=== PATIENT | female | born 1945 | race Caucasian/White ===

== ENCOUNTER 2020-05-23 19:02 | Emergency (ER) | payer MEDICARE ==
[~2020-05-23] VITALS: Ht 152.4 cm; Wt 59.0 kg
[2020-05-23 19:02] VITALS: BP 210/74
[2020-05-23] MEDS ORDERED: cefTRIAXone 1,000 MG in DEXT 5% MINI-BAG PLUS 50 ML IV ONE (19:20)
[2020-05-23] MEDS ORDERED: NACL 0.9% 1,000 ML IV SCH (19:20)
[2020-05-23] MEDS ORDERED: ATEN25TA7 PO (19:22)
[2020-05-23] MEDS ORDERED: METF500T2 PO (19:22)
[2020-05-23] MEDS ORDERED: GLIP5TER PO (19:22)
[2020-05-23] MEDS ORDERED: LISI2.5T12 PO (19:22)
[2020-05-23] MEDS ORDERED: ATOR10TA PO (19:22)
--- NOTE | 2020-05-23 19:25 | NUR ---
75 Y/O FEMALE BIBA FROM HOME C/O OF BEDSORES FOR UNKNOWN TIME. A&OX1 BASELINE. MEDHX: HTN, HLD, DM, DEMEMTIA NKA
[2020-05-23] MEDS ORDERED: cefTRIAXone 1,000 MG VIAL ONE (19:29)
--- NOTE | 2020-05-23 19:47 | NUR ---
XRAY AT BEDSIDE
[2020-05-23 20:02] LABS: BASOPHILS # (AUTO) 0.3 K/uL (0.00-0.22); BASOPHILS % (AUTO) 3.1 % (0.0-2.0); EOSINOPHILS # (AUTO) 0.1 K/uL (0-0.4); EOSINOPHILS % (AUTO) 0.8 % (0.0-4.0); HEMATOCRIT 34.6 % (36-48); HEMOGLOBIN 11.5 g/dL (12.0-16.0); LYMPHOCYTES # (AUTO) 1.2 K/uL (2.5-16.5); LYMPHOCYTES % (AUTO) 14.5 % (20.5-51.1); MEAN CORPUSCULAR HEMOGLOBIN 27 pg (27-31); MEAN CORPUSCULAR HGB CONC 33 g/dL (33-37); MEAN CORPUSCULAR VOLUME 80.2 fL (80-94); MONOCYTES # (AUTO) 0.4 K/uL (0.8-1.0); MONOCYTES % (AUTO) 4.3 % (1.7-9.3); NEUTROPHILS # (AUTO) 6.5 K/uL (1.8-7.7); NEUTROPHILS % (AUTO) 77.3 % (42.2-75.2); PLATELET COUNT (AUTO) 283 K/uL (140-450); RED BLOOD CELL COUNT(AUTO) 4.32 MIL/uL (4.20-5.40); RED CELL DISTRIBUTION WIDTH 14.5 % (11.6-13.7); WHITE BLOOD COUNT (AUTO) 8.4 K/uL (4.8-10.8)
[2020-05-23 20:12] LABS: ALBUMIN 2.5 g/dL (3.4-5.0); ANION GAP 10.8 (8-16); ASPARTATE AMINOTRANSFERASE 9 U/L (15-37); CARBON DIOXIDE 27.4 mmol/L (21-32); CHLORIDE 99 mmol/L (98-107); CREATININE 0.6 mg/dL (0.6-1.3); GLUCOSE 265 mg/dL (74-106); POTASSIUM 3.2 mmol/L (3.5-5.1); SODIUM SERUM 134 mmol/L (136-145); TOTAL BILIRUBIN 0.5 mg/dL (0.0-1.0); UREA NITROGEN, BLOOD 14 mg/dL (7-18)
[2020-05-23 21:43] LABS: APPEARANCE,URINE CLEAR (CLEAR); BILIRUBIN,URINE 1+ (NEGATIVE); BLOOD, URINE 1+ (NEGATIVE); COLOR,URINE YELLOW (YELLOW); LEUKOCYTE ESTERASE ,URINE NEGATIVE (NEGATIVE); NITRITE, URINE NEGATIVE (NEGATIVE); UGLUCOSE 3+ (NEGATIVE)
[2020-05-23 22:00] LABS: HYALINE CASTS, URINE 0-10 /LPF (None Seen); WBC,URINE 0-5 /HPF (0-5)
--- NOTE | 2020-05-23 23:49 | NUR ---
REPORT GIVEN TO AMP RN AT [facility]
--- NOTE | 2020-05-24 00:07 | NUR ---
PATIENCE TRANSPORT AT BEDSIDE
[2020-05-24 00:15] VITALS: BP 177/74
--- NOTE | 2020-05-24 00:15 | NUR ---
Patient to be transferred to [facility] ER. Is being transferred due to INSURANCE. Receiving facility has accepting physician and available space. ER physician has signed transfer form. Patient or responsible libertarian has agreed to transfer and signed form. Patient belongings inventoried and will be sent with patient. Copy of nursing notes, lab reports, EKG, Physicians Orders and X-rays to be sent with patient. Report called to AMP RN at receiving facility. [facility] ambulance service has been called for transfer. ETA is 20-30MIN.
--- NOTE | 2020-05-24 00:22 | NUR ---
PT TAKEN BY [facility]SPORT TO [facility]
--- NOTE | 2020-05-24 19:33 | NUR ---
LATE ENTRY--- ROCEPHIN ENDED AT 2114
== END 2020-05-24 00:22 | disposition designated cancer center or children's hospital (05) ==
LOC: MED 19:02
DX: L89.100 Pressure ulcer of unspecified part of back, unstageable (principal); R74.8 Abnormal levels of other serum enzymes; E11.9 Type 2 diabetes mellitus without complications; F03.90 Unspecified dementia, unspecified severity, without behavioral disturbance, psychotic disturbance, mood disturbance, and anxiety; I10 Essential (primary) hypertension; Z79.899 Other long term (current) drug therapy; Z20.822 Contact with and (suspected) exposure to COVID-19
CPT/HCPCS: 36415; 71045; 80053; 81001; 83605; 83880; 84484; 85025; 87040; 87086; 87426; 93005; 96365; 99285; C1758; J0696; J7060; 96361; 96374